=== PATIENT | female | born 1945 | race Caucasian/White ===

== ENCOUNTER 2018-04-23 11:37 | Outpatient (CLI) | payer MEDICARE, SELFPAY ==
--- NOTE | 2018-04-23 06:00 | DI.RAD_ITS ---
SYMPTOMS/DIAGNOSIS: CERVICAL SPONDYLOSIS, RT CERVICAL RADIOFREQUENCY ABLATION PAIN CLINIC: Fluoroscopy Time: 31.8 sec Fluoroscopy was utilized by Dr. Driver during the performance of a cervical radiofrequency ablation. Please refer to the procedure report for complete details.
[2018-04-23 11:50] VITALS: BP 153/79; PULSE 91; RESP 16; TEMP 37.2; O2SAT 99
[2018-04-23] MEDS: fentaNYL 100 MCG/2 ML VIAL IVP (12:32)
[2018-04-23] MEDS: Midazolam 2 MG/2 ML VIAL IVP (12:32)
[2018-04-23] MEDS: Lactated Ringers 1,000 ML 80 ML IV (12:34)
[2018-04-23 12:55] VITALS: BP 134/69; PULSE 88; RESP 14; O2SAT 96
--- NOTE | 2018-04-23 13:05 | PDOC.PAIN_ITS ---
Pain Clinic Procedure Note Current Active Problems Problem Status Onset Cervical spondylosis without myelopathy Acute CERVICAL MEDIAL BRANCH RADIOFREQUENCY WITH THE COOLIEF MACHINE CHRYSTAL GHOSH has been referred to the [facility] for radiofrequency treatment of chronic axial neck pain. 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 Local anesthetic medial branch blocks resulted in @m@ @lname@ reporting a greater than 80% reduction of the usual axial component of pain and improved function for at least the duration of the local anesthetic effect. COMMENTS: She did great with the 2 CMBBs down at [facility]. She is here as I believe that the [employer] Machine using the lateral recumbant position will be far safer for her as she has signficantly abnormal spinal anatomy. AUGIE was interviewed and the medical record reviewed. There were no medical, pharmacologic, radiographic or other structural contraindications to attempting fluoroscopically guided radiofrequency treatment. Risks and expected side effects as well as potential benefit of the procedure were reviewed with AUGIE, and AUGIE's voiced concerns addressed. The printed consent form was signed and witnessed. Standard time-out procedure was performed. AUGIE was placed in the prone position on the fluoroscopy table and automated blood pressure cuff and pulse oximeter applied. The skin entry points for approaching the anatomic target points of the segmental medial branches of right C3, C4, and C5 were identified with fluoroscopic guidence. Following thorough Chlorhexadine preparation of the skin and draping and 1% lidocaine infiltration of the skin entry points and subcutaneous tissues, a 5 cm, 18 guage, 4 mm active tip radiofrequency cannula was placed under fluoroscopic guidance at the anatomic course of each respective segmental medial branch. Each placement was stimulated at 50Hz and up to 1v in attempt to reproduce some component of AUGIE?s usual pain. If this response was accomplished, the cannula was left in place. If it could not be accomplished after multiple attempts, the cannula was placed at what was felt to be the closest anatomic approximation to the segmental medial branch. Each placement was stimulated at 2Hz and up to 3v without any evidence of distal myotomal stimulation. At each placement a continuous mode radiofrequency treatment was done at 80 degrees C for 90secs This radiofrequency treatment should result in the denervation of the right C3, C4, and C5 FACET JOINTS4. A total of facets were expected to be denervated from today's treatment. Luis vital signs were stable throughout the procedure and were as recorded in the docflowsheet by the nursing staff. Follow up plans and appointments were discussed with AUGIE. Post procedure instruction was given as documented in the nursing documentation and having met discharge criteria, Luis was discharged from the [facility]. COMMENTS: If she receives at least 6 months of pain relief, she can repeat this procedure without repeating the CMBBs. CC: None
[2018-04-23] MEDS: Lidocaine 2% Pres-Free 5 ML VIAL IJ (13:21)
[2018-04-23] MEDS: methylPREDNISolone ACETATE 40 MG/ML VIAL IJ (13:21)
[2018-04-23] MEDS: Bupivacaine 0.5% Pres-Free 30 ML VIAL IJ (13:21)
== END 2018-04-23 11:57 ==
PROVIDERS: Visit Provider Preventive Medicine Occupational Medicine
DX: M47.812 Spondylosis without myelopathy or radiculopathy, cervical region (principal)
CPT/HCPCS: 64634; 64633; 72040; J1030; J2250; J3010

== ENCOUNTER 2018-06-18 13:49 | Outpatient (CLI) | payer MEDICARE, SELFPAY ==
[2018-06-18 14:25] VITALS: BP 166/86; PULSE 78; RESP 18; TEMP 36.8; O2SAT 99
--- NOTE | 2018-06-18 15:17 | PDOC.PAIN ---
Pain Clinic Procedure Note Current Active Problems Problem Status Onset Cervical spondylosis without myelopathy Acute CERVICAL MEDIAL BRANCH BLOCKS CHRYSTAL GHOSH has been referred to the [facility] for cervical medial branch blocks. COMMENTS: Left sided pain similar to her right sided pain which was relieved with the right C3-C5 RFA. Patient was interviewed and the medical record reviewed. There were no medical, pharmacologic, radiographic or other structural contraindications to attempting fluoroscopically guided local anesthetic cervical medial branch blocks. Risks and expected side effects as well as potential benefit of the procedure were reviewed and voiced concerns addressed. The printed consent form was signed and witnessed. Standard time-out procedure was performed. Patient was placed in the Right lateral decubitus position on the fluoroscopy table and automated blood pressure cuff and pulse oximeter applied. The skin entry points for approaching the anatomic target points of the segmental medial branches of Left C3-C5 were identified with fluoroscopy and marked. Following thorough Chlorhexadine preparation of the skin and draping and 1% lidocaine infiltration of the skin entry points and subcutaneous tissues, a 25 gauge 1.5 needle was placed under fluoroscopic guidance down on to the target point for each respective segmental medial branch. Position was confirmed in A/P and leteral views with 0.25ml of omnipaque 240 injected at each level. This revealed appropriate spread and no vascular uptake. At each point 0.3ml 0.5% bupivicaine was injected. Vital signs were stable throughout the procedure and were as recorded in the docflowsheet by the nursing staff. Follow up plans and appointments were discussed and patient was instructed to keep careful note of how the usual pain was modified by these injections. Specifically, the patient was asked to keep a pain diary for the next 24 hours using a numeric pain scale of 0-10 and report these results at the follow-up visit. Post procedure instruction was given as documented in the nursing documentation and having met discharge criteria, and was discharged from the [facility]. Based on the medial branches blocked today, if they patient has adequate relief and we are able to proceed to radiofrequency ablation, the treatment should result in the denervation of the {left C3-C4 and C4-C5 FACET JOINTS. We would expect to denervate a total of 2 facets during the radiofrequency ablation. COMMENTS: No complications CC: None
[2018-06-18 15:18] VITALS: BP 153/55; PULSE 68; RESP 15; O2SAT 99
--- NOTE | 2018-06-18 15:25 | DI.RAD_ITS ---
SYMPTOMS/DIAGNOSIS: CERVICAL SPONDYLOSIS PAIN CLINIC CERVICAL SPINE: Fluoroscopy Time: 41.8 seconds C-arm fluoroscopy was provided for guidance with a cervical spine Pain Clinic injection. Please see procedure note for details.
[2018-06-18] MEDS: Bupivacaine 0.5% Pres-Free 10 ML VIAL IJ (15:29)
[2018-06-18] MEDS: Omnipaque 240 MG/ML 50 ML BTL IJ (15:29)
== END 2018-06-18 14:09 ==
PROVIDERS: Visit Provider Preventive Medicine Occupational Medicine
DX: M47.812 Spondylosis without myelopathy or radiculopathy, cervical region (principal)
CPT/HCPCS: 64490; 64491; 72040; Q9967

== ENCOUNTER 2018-06-25 13:13 | Outpatient (CLI) | payer MEDICARE, SELFPAY ==
--- NOTE | 2018-06-25 06:00 | DI.RAD_ITS ---
SYMPTOMS/DIAGNOSIS: CERVICAL SPONDYLOSIS PAIN CLINIC CERVICAL SPINE: Fluoroscopy Time: 43.8 sec Fluoroscopy was utilized by Dr. Driver during the performance of a cervical spine injection. Please refer to the procedure report for complete details.
[2018-06-25 13:43] VITALS: BP 140/74; PULSE 94; RESP 18; TEMP 37.2; O2SAT 100
[2018-06-25] MEDS: Lidocaine 2% Pres-Free 5 ML VIAL IJ (14:38)
[2018-06-25] MEDS: Omnipaque 240 MG/ML 50 ML BTL IJ (14:38)
--- NOTE | 2018-06-25 14:39 | PDOC.PAIN ---
Pain Clinic Procedure Note Current Active Problems Problem Status Onset Cervical spondylosis without myelopathy Acute CERVICAL MEDIAL BRANCH BLOCKS #2 CHRYSTAL GHOSH has been referred to the [facility] for cervical medial branch blocks. COMMENTS: She did well with the first CMBBs AUGIE was interviewed and the medical record reviewed. There were no medical, pharmacologic, radiographic or other structural contraindications to attempting fluoroscopically guided local anesthetic cervical medial branch blocks. Risks and expected side effects as well as potential benefit of the procedure were reviewed with AUGIE, and AUGIE's voiced concerns addressed. The printed consent form was signed and witnessed. Standard time-out procedure was performed. AUGIEwas placed in the Right lateral decubitus position on the fluoroscopy table and automated blood pressure cuff and pulse oximeter applied. The skin entry points for approaching the anatomic target points of the segmental medial branches of Left C3-C5 were identified with fluoroscopy and marked. Following thorough Chlorhexadine preparation of the skin and draping and 1% lidocaine infiltration of the skin entry points and subcutaneous tissues, a 25 gauge spinal needle was placed under fluoroscopic guidance down on to the target point for each respective segmental medial branch. Position was confirmed in A/P and leteral views with 0.25ml of omnipaque 240 injected at each level. At each point 0.3ml 0.5% bupivicaine was injected. ANUPAMAs vital signs were stable throughout the procedure and were as recorded in the docflowsheet by the nursing staff. Follow up plans and appointments were discussed with AUGIE. AUGIE was instructed to keep careful note of how the usual pain was modified by these injections. Specifically, the patient was asked to keep a pain diary for the next 24 hours using a numeric pain scale of 0-10 and report these results at the follow-up visit. Post procedure instruction was given as documented in the nursing documentation and having met discharge criteria, Luis was discharged from the [facility]. Based on the medial branches blocked today, if they patient has adequate relief and we are able to proceed to radiofrequency ablation, the treatment should result in the denervation of the left C3-C4 and C4-C5 FACET JOINTS. We would expect to denervate a total of 2 facets during the radiofrequency ablation. COMMENTS: She will call back with her 1-4 post-procedure pain levels. CC: None
[2018-06-25 14:41] VITALS: BP 147/72; PULSE 93; RESP 19; O2SAT 100
== END 2018-06-25 13:33 ==
PROVIDERS: Visit Provider Preventive Medicine Occupational Medicine
DX: M47.812 Spondylosis without myelopathy or radiculopathy, cervical region (principal)
CPT/HCPCS: 64490; 64491; 72040; Q9967

== ENCOUNTER 2018-07-09 08:14 | Outpatient (CLI) | payer MEDICARE, SELFPAY ==
--- NOTE | 2018-07-09 06:00 | DI.RAD_ITS ---
SYMPTOMS/DIAGNOSIS: CERVICAL SPONDYLOSIS PAIN CLINIC C-ARM FLUOROSCOPY OF THE CERVICAL SPINE: Fluoroscopy Time: 36.6 sec, 5.14 mGy Fluoroscopy was provided for guidance with cervical spine Pain Clinic injection. Please see procedure note for details.
[2018-07-09 08:24] VITALS: BP 121/66; PULSE 100; RESP 20; TEMP 36.7; O2SAT 99
[2018-07-09] MEDS: fentaNYL 100 MCG/2 ML VIAL IVP (09:54)
[2018-07-09] MEDS: Midazolam 2 MG/2 ML VIAL IVP (09:54)
[2018-07-09] MEDS: Lactated Ringers 1,000 ML 80 ML IV (09:55)
[2018-07-09 10:12] VITALS: BP 122/57; PULSE 89; RESP 16; O2SAT 98
--- NOTE | 2018-07-09 10:16 | PDOC.PAIN ---
Pain Clinic Procedure Note Current Active Problems Problem Status Onset Cervical spondylosis without myelopathy Acute CERVICAL MEDIAL BRANCH RADIOFREQUENCY WITH THE [employer] MACHINE CHRYSTAL GHOSH has been referred to the [facility] for radiofrequency treatment of chronic axial neck pain. 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 Local anesthetic medial branch blocks resulted in @m@ @lname@ reporting a greater than 80% reduction of the usual axial component of pain and improved function for at least the duration of the local anesthetic effect. COMMENTS: She did great with the CMBBs X 2 AUGIE was interviewed and the medical record reviewed. There were no medical, pharmacologic, radiographic or other structural contraindications to attempting fluoroscopically guided radiofrequency treatment. Risks and expected side effects as well as potential benefit of the procedure were reviewed with AUGIE, and AUGIE's voiced concerns addressed. The printed consent form was signed and witnessed. Standard time-out procedure was performed. AUGIE was placed in the prone position on the fluoroscopy table and automated blood pressure cuff and pulse oximeter applied. The skin entry points for approaching the anatomic target points of the segmental medial branches of left C3-C5 5 were identified with fluoroscopic guidence. Following thorough Chlorhexadine preparation of the skin and draping and 1% lidocaine infiltration of the skin entry points and subcutaneous tissues, a cm, 18 guage, 2 mm active tip radiofrequency cannula was placed under fluoroscopic guidance at the anatomic course of each respective segmental medial branch. Each placement was stimulated at 50Hz and up to 1v in attempt to reproduce some component of AUGIE?s usual pain. If this response was accomplished, the cannula was left in place. If it could not be accomplished after multiple attempts, the cannula was placed at what was felt to be the closest anatomic approximation to the segmental medial branch. Each placement was stimulated at 2Hz and up to 3v without any evidence of distal myotomal stimulation. At each placement a continuous mode radiofrequency treatment was done at 80 degrees C for 90secs This radiofrequency treatment should result in the denervation of the left C3-C4 and C4-C5 FACET JOINTS. A total of 2 facets were expected to be denervated from today's treatment. AUGIE's vital signs were stable throughout the procedure and were as recorded in the docflowsheet by the nursing staff. Follow up plans and appointments were discussed with STAVELY. Post procedure instruction was given as documented in the nursing documentation and having met discharge criteria, Luis was discharged from the [facility]. COMMENTS: If this treatment lasts at least 6 months, she can have it repeated without the CMBB. CC: None
[2018-07-09] MEDS: Lidocaine 2% Pres-Free 5 ML VIAL IJ (10:17)
[2018-07-09] MEDS: Bupivacaine 0.5% Pres-Free 10 ML VIAL IJ (10:18)
== END 2018-07-09 08:34 ==
PROVIDERS: Visit Provider Preventive Medicine Occupational Medicine
DX: M47.812 Spondylosis without myelopathy or radiculopathy, cervical region (principal); G89.29 Other chronic pain
CPT/HCPCS: 64634; 64633; 72040; J2250; J3010